=== PATIENT | female | born 1975 | race Caucasian/White ===

== ENCOUNTER 2016-07-19 14:20 | Emergency (ER) | payer SELFPAY ==
--- NOTE | 2016-07-19 15:07 | ER Document Report ---
ED Medical Screen (RME) - General Chief Complaint: Arm Pain Stated Complaint: POSSIBLE BLOOD CLOT IN ARM Notes: Patient has painful swelling in the left antecubital fossa for about 2 weeks. Recalls no injury. Has not had any blood drawn or IVs in that area in the months or even longer. No similar swelling or pain elsewhere in her joints or other parts of her body. TRAVEL OUTSIDE OF THE [place] IN LAST 30 DAYS: No - Related Data Allergies/Adverse Reactions: ciprofloxacin [From Cipro] Allergy (Intermediate, Verified 07/19/16 14:44) ciprofloxacin HCl [From Cipro] Allergy (Intermediate, Verified 07/19/16 14:44) Home Medications: Current Home Medications Oxycodone HCl/Acetaminophen [Oxycodone-Acetaminophen 10-325] 1 each PO QID 07/19 [History] Past Medical History - Past Medical History Cardiac Medical History: Reports: Hx Hypertension Neurological Medical History: Reports: Hx Migraine Renal/ Medical History: Denies: Hx Peritoneal Dialysis Musculoskeltal Medical History: Reports Hx Arthritis - DDD Psychiatric Medical History: Reports: Hx Anxiety, Hx Bipolar Disorder, Hx Depression Past Surgical History: Reports: Hx Section, Hx Hysterectomy - complete , Hx Orthopedic Surgery - L ACL repair - Immunizations Immunizations up to date: Yes Hx Diphtheria, Pertussis, Tetanus Vaccination: Yes Physical Exam - Vital signs Vitals: Temp Pulse Resp BP Pulse Ox 98.2 F 65 20 161/104 H 100 07/19/16 14:47 07/19/16 14:47 07/19/16 14:47 07/19/16 14:47 07/19/16 14:47 Course - Vital Signs Vital signs: Temp Pulse Resp BP Pulse Ox 98.2 F 65 20 161/104 H 100 07/19/16 14:47 07/19/16 14:47 07/19/16 14:47 07/19/16 14:47 07/19/16 14:47
[2016-07-19 16:20] LABS: ABSOLUTE EOSINOPHILS # (AUTO) 0.2 10^3/uL (0.0-0.6); ABSOLUTE LYMPHOCYTES (AUTO) 1.7 10^3/uL (0.5-4.7); ABSOLUTE MONOCYTES (AUTO) 0.4 10^3/uL (0.1-1.4); ABSOLUTE NEUT (AUTO) 3.8 10^3/uL (1.7-8.2); BASOPHILS % (AUTO) 0.4 % (0-2); EOSINOPHILS % (AUTO) 3.4 % (0-6); HEMOGLOBIN 14.2 g/dL (12.0-15.5); HGB HCT DIFFERENCE 1.6; LYMPHOCYTES % (AUTO) 27.2 % (13-45); MEAN CORPUSCULAR HEMOGLOBIN 29.7 pg (27.0-33.4); MEAN CORPUSCULAR HGB CONC 34.5 g/dL (32.0-36.0); MEAN CORPUSCULAR VOLUME 86 fl (80-97); MONOCYTES % (AUTO) 7.3 % (3-13); RED BLOOD COUNT 4.77 10^6/uL (3.72-5.28); RED CELL DISTRIBUTION WIDTH 12.5 % (11.5-14.0); SEGMENTED NEUTROPHILS % (AUTO) 61.7 % (42-78); WHITE BLOOD COUNT 6.1 10^3/uL (4.0-10.5)
[2016-07-19 16:28] LABS: PROTHROMBIN TIME 12.7 SEC (11.4-15.4)
[2016-07-19 16:42] LABS: ALANINE AMINOTRANSFERASE 28 U/L (9-52); ALBUMIN 4.3 g/dL (3.5-5.0); ALKALINE PHOSPHATASE 60 U/L (38-126); ANION GAP 12 (5-19); ASPARTATE AMINO TRANSFERASE 22 U/L (14-36); BILIRUBIN,DIRECT 0.2 mg/dL (0.0-0.4); BILIRUBIN,TOTAL 0.3 mg/dL (0.2-1.3); BLOOD UREA NITROGEN 8 mg/dL (7-20); CALCIUM 9.5 mg/dL (8.4-10.2); CARBON DIOXIDE 28 mmol/L (22-30); CHLORIDE 103 mmol/L (98-107); CREATININE RESULT 0.72 mg/dL (0.52-1.25); GLUCOSE 116 mg/dL (75-110); POTASSIUM 4.4 mmol/L (3.6-5.0); SODIUM 142.6 mmol/L (137-145); TOTAL PROTEIN 7.4 g/dL (6.3-8.2)
--- NOTE | 2016-07-19 18:03 | ER Document Report ---
ED General - General Chief Complaint: Arm Pain Stated Complaint: POSSIBLE BLOOD CLOT IN ARM TRAVEL OUTSIDE OF THE [place] IN LAST 30 DAYS: No - HPI Patient complains to provider of: left elbow pain Notes: Patient coming in for left elbow pain. 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 Patient states she has developed a knot in the left antecubital fossa and is concerned about a blood clot. Patient otherwise has no other past medical history. Denies trauma - Related Data Allergies/Adverse Reactions: ciprofloxacin [From Cipro] Allergy (Intermediate, Verified 07/19/16 14:44) ciprofloxacin HCl [From Cipro] Allergy (Intermediate, Verified 07/19/16 14:44) Home Medications: Current Home Medications Oxycodone HCl/Acetaminophen [Oxycodone-Acetaminophen 10-325] 1 each PO QID 07/19 [History] Past Medical History - Social History Smoking Status: Unknown if Ever Smoked Family History: Reviewed & Not Pertinent Patient has suicidal ideation: No Patient has homicidal ideation: No - Past Medical History Cardiac Medical History: Reports: Hx Hypertension Neurological Medical History: Reports: Hx Migraine Renal/ Medical History: Denies: Hx Peritoneal Dialysis Musculoskeltal Medical History: Reports Hx Arthritis - DDD Psychiatric Medical History: Reports: Hx Anxiety, Hx Bipolar Disorder, Hx Depression Past Surgical History: Reports: Hx Section, Hx Hysterectomy - complete , Hx Orthopedic Surgery - L ACL repair - Immunizations Immunizations up to date: Yes Hx Diphtheria, Pertussis, Tetanus Vaccination: Yes Review of Systems - Review of Systems Constitutional: No symptoms reported EENT: No symptoms reported Cardiovascular: No symptoms reported Respiratory: No symptoms reported Gastrointestinal: No symptoms reported Genitourinary: No symptoms reported Female Genitourinary: No symptoms reported Musculoskeletal: Other - Arm pain Skin: No symptoms reported Hematologic/Lymphatic: No symptoms reported Neurological/Psychological: No symptoms reported Physical Exam - Vital signs Vitals: Temp Pulse Resp BP Pulse Ox 98.2 F 65 20 161/104 H 100 07/19/16 14:47 07/19/16 14:47 07/19/16 14:47 07/19/16 14:47 07/19/16 14:47 Interpretation: Normal - General General appearance: Appears well, Alert - HEENT Head: Normocephalic, Atraumatic Eyes: Normal Pupils: PERRL - Respiratory Respiratory status: No respiratory distress Chest status: Nontender Breath sounds: Normal Chest palpation: Normal - Cardiovascular Rhythm: Regular Heart sounds: Normal auscultation Murmur: No - Abdominal Inspection: Normal Distension: No distension Bowel sounds: Normal Tenderness: Nontender Organomegaly: No organomegaly - Back Back: Normal, Nontender - Extremities General upper extremity: Nontender, Normal color, Normal ROM, Normal temperature. No: Normal inspection - Patient does have a small tender but freely mobile lump within the cubital fossa possible development of a cyst or beginning of a bursitis however not consistent with any abscess or superficial phlebitis. Right unaffected General lower extremity: Normal inspection, Nontender, Normal color, Normal ROM , Normal temperature, Normal weight bearing. No: Mabel's sign - Neurological Neuro grossly intact: Yes Cognition: Normal Orientation: AAOx4 [place] Coma Scale Eye Opening: Spontaneous [place] Coma Scale Verbal: Oriented [place] Coma Scale Motor: Obeys Commands [place] Coma Scale Total: 15 Speech: Normal Motor strength normal: LUE, RUE, LLE, RLE Sensory: Normal - Psychological Associated symptoms: Normal affect, Normal mood - Skin Skin Temperature: Warm Skin Moisture: Dry Skin Color: Normal Course - Re-evaluation Re-evalutation: 07/19/16 19:32 Unclear etiology the patient's symptoms. Patient was encouraged to try to delay using her hot sleeves when she can patient was instructed on using ice and heat anti-inflammatory medication and follow-up with orthopedics if symptoms continue. Patient agrees with plan ultrasound was negative patient will be discharged - Vital Signs Vital signs: Temp Pulse Resp BP Pulse Ox 97.9 F 63 16 147/92 H 98 07/19/16 18:20 07/19/16 18:20 07/19/16 18:20 07/19/16 18:20 07/19/16 18:20 - Laboratory Result Diagrams: 07/19/16 16:11 07/19/16 16:11 Laboratory results interpreted by me: 07/19/16 16:11 Glucose 116 H Discharge - Discharge Clinical Impression: Left arm pain Condition: Good Disposition: HOME, SELF-CARE Instructions: Ganglion Cyst ([facility]) Additional Instructions: Your ultrasound today does not show any signs of a blood clot. Examination is more consistent with possible development of a using a cyst or a bursitis. It is my recommendation that the patient stop the use of her hot sleeve at work to avoid more irritation and to help with the healing process. You may use ice and heat to the area to help out in pain relief. The mastoid take Tylenol and Motrin recommend taking 600 mg of Motrin 3 times a day for the next 5 days. Also recommend following up with orthopedic doctor provided pain continues after 2 weeks. Prescriptions: Ibuprofen [Motrin 600 mg Tablet] 600 mg PO Q8HP PRN #30 tablet PRN Reason: Forms: Return to Work Referrals: KUMAR VILLEDA MD [ACTIVE STAFF] - Follow up as needed
[2016-07-19 18:21] VITALS: BP 147/92
--- NOTE | 2016-07-20 08:15 | XCELERA REPORT ---
[address] [address] Upper Extremity Venous Evaluation Name: QUEENIERYLEE Chey Age: 40 yrs Gender: Female : 1975 Patient Status: Emergency Patient Location: ER Study Date: 07/19/2016 03:26 PM Procedure: Unilateral duplex scan of the left upper extremity veins was performed, including responses to compression and other maneuvers. Reason For Study: painful swollen left antecubital fossa Ordering Physician: LAUREL VÁZQUEZ Performed By: Rylee Martin Left Sided Venous Evaluation Normal vessel filling wall to wall, compression and augmentation as well as Colour flow down to the forearm veins. Critical Findings Discussed with Dr Valderrama. Interpretation Summary Normal compression, patency, spontaneous and phasic flow of the left upper extremity veins. : LAUREL VÁZQUEZ > Patrice Reyes
== END 2016-07-19 18:24 | disposition home or self-care (01) ==
LOC: ER 14:20
DX: M25.522 Pain in left elbow (principal); Z79.899 Other long term (current) drug therapy
CPT/HCPCS: 36415; 80053; 85025; 85610; 93971; 99284

== ENCOUNTER 2016-09-11 10:35 | Emergency (ER) | payer SELFPAY ==
--- NOTE | 2016-09-11 11:49 | ER Document Report ---
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 She had usual washcloth to get her eye open. Opening of a patch of dry skin on her back. She is worried that it might be shingles which she has never had. Associated Symptoms: None Exacerbated by: Denies Relieved by: Denies - ROS ROS below otherwise negative: Yes Systems Reviewed and Negative: Yes All other systems reviewed and negative - CARDIOVASCULAR Cardiovascular: DENIES: Chest pain - REPRODUCTIVE LMP: hysterectomy Reproductive: DENIES: : - DERM Skin Color: Normal Past Medical History - General Information source: Patient - Social History Smoking Status: Never Smoker Chew tobacco use (# tins/day): No Frequency of alcohol use: None Drug Abuse: None Lives with: Family Family History: Reviewed & Not Pertinent Patient has suicidal ideation: No Patient has homicidal ideation: No - Past Medical History Cardiac Medical History: Reports: Hx Hypertension Neurological Medical History: Reports: Hx Migraine Renal/ Medical History: Denies: Hx Peritoneal Dialysis Musculoskeltal Medical History: Reports Hx Arthritis - DDD Psychiatric Medical History: Reports: Hx Anxiety, Hx Bipolar Disorder, Hx Depression Past Surgical History: Reports: Hx Section, Hx Hysterectomy, Hx Orthopedic Surgery - L ACL repair - Immunizations Immunizations up to date: Yes Hx Diphtheria, Pertussis, Tetanus Vaccination: Yes Vertical Provider Document - CONSTITUTIONAL Agree With Documented VS: Yes Exam Limitations: No Limitations General Appearance: No Apparent Distress - INFECTION CONTROL TRAVEL OUTSIDE OF THE [place] IN LAST 30 DAYS: No - HEENT HEENT: Conjuctival Injection - no fluoroscein uptake, no fb., Normocephalic, PERRLA - NECK Neck: Supple. negative: Lymphadenopathy-Left, Lymphadenopathy-Right - RESPIRATORY O2 Sat by Pulse Oximetry: 100 - BACK Notes: 8 cm excoriated flat pale pink patch of dry skin mid lower thoracic back. - MUSCULOSKELETAL/EXTREMETIES Musculoskeletal/Extremeties: MAEW, FROM - NEURO Level of Consciousness: Awake, Alert - DERM Integumentary: Warm, Dry, Rash - See above Course - Vital Signs Vital signs: Temp Pulse Resp BP Pulse Ox 98.5 F 69 16 182/102 H 100 09/11/16 10:46 09/11/16 10:46 09/11/16 10:46 09/11/16 10:46 09/11/16 10:46 Discharge - Discharge Clinical Impression: Right eye conjunctivitis, Dry skin Condition: Good Disposition: HOME, SELF-CARE Instructions: Eyedrop Use ([facility]), Conjunctivitis ([facility]), Sulfa Medications ([facility]) Additional Instructions: warm compress right eye see opthamologist if eye gets worse See charge entry clerk of skin gets worse polytrim eye drops 1 drop in right eye every 3 hours up to 6 times per day moisturize back dry skin topical over the counter steroid may help the area you are itching Please complete the patient satisfaction survey if you get one, and return it.. If you do not receive a survey, then you can go to the [facility] website, [email or web address] and place your comments about your very good care. Thank you very much. It was a pleasure being your medical provider today. Referrals: FREDY WELLER MD [ACTIVE STAFF] - Follow up as needed OSCAR HENRY DO [ACTIVE STAFF] - Follow up as needed
[2016-09-11 12:05] VITALS: BP 142/80
[2016-09-11] MEDS ORDERED: POLYMYXIN B SULFATE/TMP OPH SOLN 10 ML OD SCH (12:45)
== END 2016-09-11 13:35 | disposition home or self-care (01) ==
LOC: ER 10:35
DX: H10.9 Unspecified conjunctivitis (principal); L98.8 Other specified disorders of the skin and subcutaneous tissue; R21 Rash and other nonspecific skin eruption; I10 Essential (primary) hypertension
CPT/HCPCS: 99282; J3490

== ENCOUNTER → 2017-01-12 | Outpatient (CLI) | payer SELFPAY ==
--- NOTE | 2017-01-12 10:55 | RADIOLOGY REPORT (SQ) ---
EXAM DESCRIPTION: CERV SP 4 OR 5 VIEWS COMPLETED DATE/TIME: 01/12/2017 10:16 am REASON FOR STUDY: NECK PAIN COMPARISON: 07/10/2013 NUMBER OF VIEWS: Five views. TECHNIQUE: AP, lateral, obliques and odontoid radiographic images acquired of the cervical spine. LIMITATIONS: None. FINDINGS: MINERALIZATION: Normal. ALIGNMENT: Anatomic. VERTEBRAE: Vertebral bodies of normal height. DISCS: No significant osteophytes or sclerosis. Disc height maintained. FORAMINA: There is mild narrowing of C3-4 foramina bilaterally, right more than left, secondary to un covertebral osteophytes. LATERAL AND POSTERIOR ELEMENTS: Facets, lateral masses and spinous processes without significant find ings. HARDWARE: None in the spine. SOFT TISSUES: No masses or calcifications. Lung apices clear. OTHER: No other significant finding. IMPRESSION: Mild spondylosis. TECHNICAL DOCUMENTATION: JOB ID: [id number] [employer]- All Rights Reserved
== END ==
LOC: RAD 09:59
DX: M47.9 Spondylosis, unspecified (principal)
CPT/HCPCS: 72050

== ENCOUNTER 2018-11-02 04:31 | Emergency (ER) | payer BC ==
[2018-11-02] MEDS ORDERED: ACETAMINOPHEN 325 MG TABLET PO ONE (06:07)
[2018-11-02] MEDS ORDERED: KETOROLAC TROMETHAMINE 60 MG/2 ML SDV IM ONE (08:46)
[2018-11-02] MEDS ORDERED: BUPIVACAINE HCL 0.5 % INJ/PF 30 ML SDV DENT ONE (08:47)
--- NOTE | 2018-11-02 08:48 | ER Document Report ---
ED General - General Chief Complaint: Mouth Problem Stated Complaint: FACIAL SWELLING Time Seen by Provider: 11/02/18 08:40 Primary Care Provider: JOHN ROSENBERG DDS [ACTIVE STAFF] - Follow up in 3-5 days (FOLLOW UP IF UNABLE TO SEE YOUR DENTIST) MALCOM SANCHEZ CDA [DENTAL ETHICAL HACKER] - Follow up as needed TRAVEL OUTSIDE OF THE [place] IN LAST 30 DAYS: No - HPI Notes: 43-year-old female to the emergency department with complaints of right lower jaw swelling and dental pain that has been getting progressively worse since . She states that she has been taking an old prescription for clindamycin and Motrin but has had no relief. She states that the swelling has been getting bigger. She denies any drooling, shortness of breath, difficulty swallowing, chest pain, nausea, vomiting, diarrhea, abdominal pain. Admits to right-sided ear pain and headache radiating from her jaw. She states that she felt like she had a fever this evening and that is why she came to the emergency department. She was afebrile with triage. She is currently in a Suboxone program. - Related Data Allergies/Adverse Reactions: ciprofloxacin [From Cipro] Allergy (Intermediate, Verified 09/11/16 10:44) ciprofloxacin HCl [From Cipro] Allergy (Intermediate, Verified 09/11/16 10:44) Past Medical History - General Information source: Patient - Social History Smoking Status: Current Every Day Smoker Frequency of alcohol use: None Drug Abuse: Prescription drugs - Currently in Suboxone program Family History: Reviewed & Not Pertinent Patient has suicidal ideation: No Patient has homicidal ideation: No - Past Medical History Cardiac Medical History: Reports: Hx Hypertension Neurological Medical History: Reports: Hx Migraine Renal/ Medical History: Denies: Hx Peritoneal Dialysis Musculoskeletal Medical History: Reports Hx Arthritis - DDD Psychiatric Medical History: Reports: Hx Anxiety, Hx Bipolar Disorder, Hx Depression Past Surgical History: Reports: Hx Section, Hx Hysterectomy, Hx Orthopedic Surgery - L ACL repair - Immunizations Immunizations up to date: Yes Hx Diphtheria, Pertussis, Tetanus Vaccination: Yes Review of Systems - Review of Systems Constitutional: Fever. denies: Chills, Diaphoresis EENT: See HPI, Mouth pain, Mouth swelling, Dental problem Cardiovascular: denies: Chest pain, Palpitations, Dyspnea, Syncope, Dizziness Respiratory: denies: Cough, Short of breath Gastrointestinal: denies: Abdominal pain, Diarrhea, Nausea, Vomiting Musculoskeletal: No symptoms reported Skin: No symptoms reported Neurological/Psychological: No symptoms reported -: Yes All other systems reviewed and negative Physical Exam - Vital signs Vitals: Temp Pulse Resp BP Pulse Ox 98.1 F 72 16 186/102 H 96 11/02/18 04:41 11/02/18 04:41 11/02/18 04:41 11/02/18 04:41 11/02/18 04:41 Interpretation: Hypertensive - General General appearance: Appears well In distress: None - HEENT Head: Normocephalic Eyes: Normal Conjunctiva: Normal Pupils: PERRL Ears: Normal External canal: Normal Tympanic membrane: Normal Sinus: Normal Nasal: Normal Mouth/Lips: Other - To the right lower jaw there is noted dental abscess with induration. Patient has severe dentition throughout with multiple dental caries at various stages but most are worn down to the gumline. She does not have any Henrry's angina. Not drooling. Her airway is grossly patent. Mucous membranes: Normal Pharynx: No: Peritonsillar abscess, Retropharyngeal abscess, Tonsillar hypertrophy, Uvular edema, Potential airway comprom. Neck: Normal - Respiratory Respiratory status: No respiratory distress Chest status: Nontender Breath sounds: Normal Chest palpation: Normal - Cardiovascular Rhythm: Regular Heart sounds: Normal auscultation Murmur: No - Neurological Neuro grossly intact: Yes Cognition: Normal Orientation: AAOx4 [place] Coma Scale Eye Opening: Spontaneous [place] Coma Scale Verbal: Oriented [place] Coma Scale Motor: Obeys Commands [place] Coma Scale Total: 15 Speech: Normal Motor strength normal: LUE, RUE, LLE, RLE Sensory: Normal - Psychological Associated symptoms: Normal affect, Normal mood - Skin Skin Temperature: Warm Skin Moisture: Dry Skin Color: Normal Course - Re-evaluation Re-evalutation: 11/02/18 09:16 patient with evolving dental abscess. Performed dental block and patient got good relief. Did not get any purulence from the site. She does not have Henrry's angina and her airway is grossly patent. She was not febrile with initial vital signs. She was hypertensive -- likely due to pain. She does not have a history of HTN. Will obtain new set of vitals and if reassuring, discharge home. Will send home with Clindamycine QID, motrin, peridex. Patient does have a dentist and I have encouraged her to follow up with them on sunday. She agrees with the plan. Urged her to return if worsening pain, swelling, drooling, inability to swallow, feeling like her tongue is being pushed back in her mouth or any other concerning symptoms. She agrees with the plan. - Vital Signs Vital signs: Temp Pulse Resp BP Pulse Ox 98.1 F 72 16 186/102 H 96 11/02/18 04:41 11/02/18 04:41 11/02/18 04:41 11/02/18 04:41 11/02/18 04:41 Procedures - Additional Procedures dental block Notes: 11/02/18 09:14 dental block was performed on the patient for pain relief from her dental pain. 2 mL of 0.5% Bupivcaine was used. 22 gauge needle was inserted into the gum twice. Patient had complete and good anesthesia from the block. She has some mild bleeding. Did attempt to aspirate pus from the area of induration, but was not successful in drawing back any purulence. Discharge - Discharge Clinical Impression: Dental abscess, Pain, dental, Elevated blood pressure reading Condition: Stable Disposition: HOME, SELF-CARE Instructions: Toothache ([facility]) Additional Instructions: Dental Infection or Abscess You have an infection, perhaps an abscess (pus formation) of the gum around one of your teeth, which is probably decayed. If there is an abscess, it may drain on its own or it may need to be opened or lanced. Severe swelling or drainage around a tooth usually means a deep dental abscess which usually requires evaluation and treatment by a dentist or oral surgeon. Antibiotics may be prescribed while awaiting dental treatment. If you develop high fever with chills, worsening pain, or increasing swelling in the area, see a dentist or oral surgeon immediately or return to the Emergency Department immediately. COMPLETE ALL ANTIBIOTICS. PUSH FLUIDS. Prescriptions: Chlorhexidine Gluconate [Peridex] 15 ml MM TID #420 ml Clindamycin HCl 300 mg PO QID #40 capsule Ibuprofen [Motrin 800 mg Tablet] 800 mg PO Q8H PRN #30 tab PRN Reason: Prednisone [Deltasone] 40 mg PO DAILY #6 tablet Referrals: MALCOM SANCHEZ CDA [DENTAL ETHICAL HACKER] - Follow up as needed JOHN ROSENBERG DDS [ACTIVE STAFF] - Follow up in 3-5 days (FOLLOW UP IF UNABLE TO SEE YOUR DENTIST)
[2018-11-02] MEDS ORDERED: CLINDAMYCIN HCL 150 MG CAPSULE PO ONE (08:57)
[2018-11-02 10:18] VITALS: BP 151/95
== END 2018-11-02 10:19 | disposition home or self-care (01) ==
LOC: ER 04:31
DX: K04.7 Periapical abscess without sinus (principal); I10 Essential (primary) hypertension; R50.9 Fever, unspecified; R22.0 Localized swelling, mass and lump, head; K08.89 Other specified disorders of teeth and supporting structures; F17.200 Nicotine dependence, unspecified, uncomplicated; Z79.899 Other long term (current) drug therapy
CPT/HCPCS: 99282; 96372; J3490; J1885